=== PATIENT | female | born 1990 | race Caucasian/White ===

== ENCOUNTER 2022-02-21 08:00 | Outpatient (CLI) | payer MEDICAID, OTHER ==
[2022-02-21 16:09] LABS: BILIRUBIN,URINE NEGATIVE (NEGATIVE); GLUCOSE, URINE (UA) NEGATIVE (NEGATIVE); KETONES,URINE (UA) NEGATIVE (NEGATIVE); LEUKOCYTE ESTERASE, URINE NEGATIVE (NEGATIVE); NITRITE,URINE NEGATIVE (NEGATIVE); OCCULT BLOOD,URINE NEGATIVE (NEGATIVE); PH,URINE 7.5 PH (5.0-7.5); PROTEIN,URINE NEGATIVE (NEGATIVE); UROBILINOGEN,URINE 0.2 (NORMAL) E.U./dL (NORMAL)
[2022-02-21 16:26] LABS: CLARITY,URINE CLEAR (CLEAR)
[2022-02-21 17:14] LABS: BACTERIA,URINE Few /HPF (None Seen); RBC,URINE None Seen /HPF (0-5); SQUAMOUS EPITHELIAL CELL,UR MANY Squamous (<= Few); WBC,URINE 0-3 /HPF (0-5)
== END 2022-02-21 23:59 | disposition home or self-care (01) ==
LOC: LAB 08:00
PROVIDERS: ATTEND Obstetrics & Gynecology
DX: Z32.01 Encounter for pregnancy test, result positive (principal)
CPT/HCPCS: 81001; 87086

== ENCOUNTER 2022-03-04 13:50 | Outpatient (CLI) | payer MEDICAID ==
[2022-03-04 14:17] LABS: BASOPHILS # (AUTO) 0.1 10^3/uL (0.0-0.1); BASOPHILS % (AUTO) 0.4 %; EOSINOPHILS # (AUTO) 0.2 10^3/uL (0.0-0.7); EOSINOPHILS % (AUTO) 1.8 %; HCT - HEMATOCRIT 37.4 % (37.0-47.0); HGB - HEMOGLOBIN 12.8 g/dL (12.0-16.0); LYMPHOCYTES # (AUTO) 2.2 10^3/uL (1.5-3.5); LYMPHOCYTES % (AUTO) 16.7 %; MEAN CORPUSCULAR HEMOGLOBIN 29.4 pg (27.0-31.0); MEAN CORPUSCULAR HGB CONC 34.2 g/dL (32.0-36.0); MEAN CORPUSCULAR VOLUME 85.8 fL (81.0-99.0); MEAN PLATELET VOLUME 10.6 fL (7.9-10.8); MONOCYTES # (AUTO) 0.6 10^3/uL (0.0-1.0); MONOCYTES % (AUTO) 4.8 %; NEUTROPHILS # (AUTO) 9.9 10^3/uL (1.5-6.6); NEUTROPHILS % (AUTO) 76.1 %; PLT - PLATELET COUNT 264 10^3/uL (130-450); RED BLOOD COUNT 4.36 10^6/uL (4.20-5.40); RED CELL DISTRIBUTION WIDTH 12.8 % (12.0-15.0)
[2022-03-04 14:18] LABS: BILIRUBIN,URINE NEGATIVE (NEGATIVE); GLUCOSE, URINE (UA) NEGATIVE (NEGATIVE); KETONES,URINE (UA) NEGATIVE (NEGATIVE); LEUKOCYTE ESTERASE, URINE NEGATIVE (NEGATIVE); NITRITE,URINE NEGATIVE (NEGATIVE); OCCULT BLOOD,URINE NEGATIVE (NEGATIVE); PROTEIN,URINE NEGATIVE (NEGATIVE); UROBILINOGEN,URINE 0.2 (NORMAL) E.U./dL (NORMAL)
[2022-03-04 14:36] LABS: CLARITY,URINE CLEAR (CLEAR)
[2022-03-04 14:46] LABS: BACTERIA,URINE Few /HPF (None Seen); RBC,URINE 0-5 /HPF (0-5); SQUAMOUS EPITHELIAL CELL,UR MANY Squamous (<= Few); WBC,URINE 0-3 /HPF (0-5)
[2022-03-04 14:47] LABS: MUCUS,URINE Marked Strands
[2022-03-05 04:08] LABS: HBsAG SCREEN Negative (Negative); HCV AB <0.1 s/co ratio (0.0-0.9); HIV SCREEN 4TH GENERATION Non Reactive (Non Reactive)
[2022-03-05 07:10] LABS: VARICELLA-ZOSTER AB IGG 1570 index (Immune >165)
[2022-03-05 08:09] LABS: RPR Non Reactive (Non Reactive)
== END 2022-03-04 13:51 | disposition home or self-care (01) ==
LOC: LAB 13:50
PROVIDERS: ATTEND Obstetrics & Gynecology
DX: Z36.89 Encounter for other specified antenatal screening (principal); Z32.01 Encounter for pregnancy test, result positive
CPT/HCPCS: 36415; 81001; 85025; 86592; 86762; 86787; 86803; 86850; 86900; 86901; 87086; 87340; 87389

== ENCOUNTER 2022-03-06 17:04 | Outpatient (CLI) | payer MEDICAID ==
--- NOTE | 2022-03-07 12:12 | Ultrasound Report ---
PROCEDURE: OB First Trimester w/TV INDICATIONS: POSITIVE TEST OUTSIDE/PRIOR DATING DATA: Last menstrual period (LMP): 11/28/2021. LMP-based estimated date of delivery (ISIS): 09/04/2022. First dating scan (date and location): 03/06/2022 [facility] Gary Estimated date of delivery (ISIS) from first dating scan: 10/27/2022. The below data below was generated using the ultrasound ISIS of 10/27/2022 TECHNIQUE: Real-time scanning was performed of the fetus and maternal pelvic organs, with image documentation. Endovaginal scanning was also performed to better visualize the fetus and maternal ovaries. COMPARISON: None FINDINGS: Embryo: Intrauterine gestational sac. Mean gestational sac diameter 2.6 cm. pole measuring 0.6 cm corresponding to 6 weeks 3 days gestational age. A yolk sac is seen. Small subchorionic hemorrhag e measuring 1.6 cm. Heart rate: 107 bpm Measurement variability in dating: +/- 4 weeks by LMP, +/- 7 days by mean sac diameter (use before 6 weeks gestation if crown-rump length not able to be measured), +/- 5 days by crown-rump length (6-12 weeks gestation). Maternal organs: Ovaries are within normal limits. Right corpus luteum measuring at 2.5 cm. Simple r ight ovarian cyst measuring 2.8 cm. Trace fluid adjacent to the right adnexa. IMPRESSION: 1. Pichardo living intrauterine at 6 weeks 3 days based on today's crown-rump length. 2. Small perigestational hemorrhage. Reviewed by: Dimitrios Koch MD on 03/07/2022 12:11 PM PDT Approved by: Dimitrios Koch MD on 03/07/2022 12:11 PM PDT Station ID: [id number]
== END 2022-03-06 17:05 | disposition home or self-care (01) ==
LOC: DI 17:04
PROVIDERS: ATTEND Obstetrics & Gynecology
DX: O41.8X10 Other specified disorders of amniotic fluid and membranes, first trimester, not applicable or unspecified (principal); Z3A.01 Less than 8 weeks gestation of pregnancy

== ENCOUNTER 2022-03-14 14:45 | Outpatient (CLI) | payer MEDICAID ==
--- NOTE | 2022-03-15 14:27 | Ultrasound Report ---
PROCEDURE: OB First Trimester w/TV INDICATIONS: SUPERVISION OF OUTSIDE/PRIOR DATING DATA: Last menstrual period (LMP): 11/28/2021. LMP-based estimated date of delivery (ISIS): 09/01/2022. First dating scan (date and location): 03/06/2022. Estimated date of delivery (ISIS) from first dating scan: 10/27/2022. The below data below was generated using the ultrasound ISIS of 10/27/2021. TECHNIQUE: Real-time scanning was performed of the fetus and maternal pelvic organs, with image documentation. Endovaginal scanning was also performed to better visualize the fetus and maternal ovaries. COMPARISON: OB ultrasound, 03/06/2022. FINDINGS: There is a single living IUP with a crown-rump measuring 1.21 cm, corresponding to ultraso und ISIS 7 weeks 3 days. heart tone is present with heart rate 135 BPM. Cervix is closed. Measurement variability in dating: +/- 4 weeks by LMP, +/- 7 days by mean sac diameter (use before 6 weeks gestation if crown-rump length not able to be measured), +/- 5 days by crown-rump length (6-12 weeks gestation). Maternal organs: There is a 2.7 x 1.5 x 2.5 cm corpus luteal cyst in right ovary. In addition, there is a 2.9 x 1.4 x 2.4 cm simple appearing cyst in right ovary. Left ovary is grossly normal. IMPRESSION: 1. A single living IUP is present. There is appropriate interval growth. 2. Right ovarian cysts. Reviewed by: Martin Felton MD on 03/15/2022 2:26 PM PDT Approved by: Martin Felton MD on 03/15/2022 2:26 PM PDT Station ID: [id number]
== END 2022-03-14 14:46 | disposition home or self-care (01) ==
LOC: DI 14:45
PROVIDERS: ATTEND Obstetrics & Gynecology
DX: O34.81 Maternal care for other abnormalities of pelvic organs, first trimester (principal); N83.11 Corpus luteum cyst of right ovary; Z3A.01 Less than 8 weeks gestation of pregnancy

== ENCOUNTER 2022-05-03 14:20 | Outpatient (CLI) | payer MEDICAID | END 2022-05-03 14:21 | disposition home or self-care (01) | LOC: LAB 14:20 | PROVIDERS: ATTEND Obstetrics & Gynecology | DX: Z32.01 Encounter for pregnancy test, result positive (principal) | CPT/HCPCS: 36415; 84702 ==

== ENCOUNTER 2022-05-24 08:21 | Emergency (ER) | payer MEDICAID ==
[2022-05-24] MEDS ORDERED: SODIUM CHLORIDE 0.9% 1,000 ML IV STA (09:06)
[2022-05-24] MEDS ORDERED: METOCLOPRAMIDE 10 MG/2 ML VIAL IVP STA (09:06)
[2022-05-24] MEDS ORDERED: diphenhydrAMINE INJ 50 MG/ML VIAL IVP STA (09:06)
[2022-05-24] MEDS ORDERED: KETOROLAC 30 MG/ML VIAL IVP STA (09:06)
[2022-05-24 09:48] LABS: RAPID STREP SCREEN Negative (Negative)
--- NOTE | 2022-05-24 10:14 | ED Physician Documentation ---
PD HPI HEADACHE - Stated complaint Stated Complaint: HEADACHE - Chief complaint Chief Complaint: Neuro - History obtained from History obtained from: Patient - Additional information Additional information: Patient is a 32-year-old female presenting for evaluation of a headache that is behind both eyes and has been present for 1 week. It is throbbing in nature. She reports of the last several months she has had an increased frequency in her headaches. She used to get them once a week and then every few days but now they are coming every other day and this 1 has been lasting for 1 week. She al so reports having URI symptoms for the past 2 to 3 days with sore throat, nasal congestion. She has been using Excedrin without any improvement. She did have nausea earlier on but that has improved.She denies fever, head trauma, chest pain, difficulty breathing. She denies concerns for .She has not recently seen a neurologist as Her divorce was recently finalized and she lost her insurance. She does not currently have a PCP. Review of Systems Constitutional: denies: Fever Nose: reports: Congestion Throat: reports: Sore throat Cardiac: denies: Chest pain / pressure Respiratory: denies: Dyspnea GI: reports: Nausea. denies: Abdominal Pain, Vomiting : denies: Dysuria Musculoskeletal: denies: Back pain Neurologic: reports: Headache PD PAST MEDICAL HISTORY - Past Medical History Past Medical History: Yes - Past Surgical History Past Surgical History: No - Present Medications Home Medications: Ambulatory Orders Medication Instructions Recorded Confirmed Ondansetron Odt [Zofran] 4 mg TL Q6H PRN #10 tablet 09/02/13 Butalb/Acetam/Caff 50/325/40 1 each PO Q6HR PRN #12 tablet 05/24/22 [Fioricet] - Allergies Allergies/Adverse Reactions: Allergies Allergy/AdvReac Type Severity Reaction Status Date / Time No Known Drug Allergies Allergy Verified 05/24/22 08:46 - Social History Does the pt smoke?: No Smoking Status: Never smoker Does the pt drink ETOH?: No Does the pt have substance abuse?: No - Immunizations Immunizations are current?: Yes PD ED PE NORMAL - General General: Alert and oriented X 3, No acute distress, Well developed/nourished - HEENT HEENT: Atraumatic, PERRL, EOMI, Moist mucous membranes, Pharynx benign - Neck Neck: Supple, no meningeal sign - Cardiac Cardiac: RRR, No murmur - Respiratory Respiratory: No respiratory distress, Clear bilaterally - Abdomen Abdomen: Soft, Non tender - Derm Derm: Warm and dry - Extremities Extremities: No edema - Neuro Neuro: Alert and oriented X 3, manager advertising 2-12 intact, No motor deficit, No sensory deficit, Normal speech Results - Vitals Vitals: Vital Signs - 24 hr 05/24/22 05/24/22 08:44 10:26 Temperature 36.6 C Heart Rate 99 66 Respiratory 20 16 Rate Blood Pressure 115/67 112/78 O2 Saturation 99 100 Oxygen O2 Source Room air - Labs Labs: Laboratory Tests 05/24/22 05/24/22 09:25 09:25 Nasal Adenovirus (PCR) NOT DETECTED Nasal B. parapertussis DNA (PCR) NOT DETECTED Nasal Coronavir 229E PCR NOT DETECTED Nasal Coronavir HKU1 PCR NOT DETECTED Nasal Coronavir NL63 PCR NOT DETECTED Nasal Coronavir OC43 PCR NOT DETECTED Nasal Enterovir/Rhinovir PCR NOT DETECTED Nasal Influenza B PCR NOT DETECTED Nasal Influenza A PCR NOT DETECTED Nasal Parainfluen 1 PCR NOT DETECTED Nasal Parainfluen 2 PCR NOT DETECTED Nasal Parainfluen 3 PCR NOT DETECTED Nasal Parainfluen 4 PCR NOT DETECTED Nasal RSV (PCR) NOT DETECTED Nasal B.pertussis DNA PCR NOT DETECTED Nasal C.pneumoniae (PCR) NOT DETECTED Jose Human Metapneumo PCR NOT DETECTED Nasal M.pneumoniae (PCR) NOT DETECTED Nasal SARS-CoV-2 (PCR) NOT DETECTED Group A Strep Rapid Negative PD MEDICAL DECISION MAKING - ED course Complexity details: reviewed results, re-evaluated patient, d/w patient ED course: Patient presenting for evaluation of migraine that has been present for 1 week. She does have a history of migraines but they have been increasing in frequency recently. She denies that this is different than prior episodes other than lasting longer. She has no red flag signs or symptoms in regards to her headache and is well-appearing. She has a normal neuro exam without signs of meningitis.She does report having recent URI symptoms including a sore throat. She has no signs of oral abscess or deep space infection. Her strep test is negative. She is feeling better with migraine cocktail. Given that she reports having an increased frequency of migraine headaches recently will Rx Fioricet as Excedrin has not been helping her. She was also given information for a PCP. She is ambulatory at discharge and advised on concerning symptoms to return for. Departure - Departure Disposition: 01 Home, Self Care Clinical Impression: Headache, Viral upper respiratory illness Condition: Stable Instructions: ED Headache Tension, ED Viral Syndrome Follow-Up: Shayla Salvador ARNP [Credentialed Staff Provider] - Prescriptions: Butalb/Acetam/Caff 50/325/40 [Fioricet] 1 each PO Q6HR PRN #12 tablet PRN Reason: Headache Comments: Your strep test is negative. Your respiratory panel is pending. This will check for COVID, influenza, RSV and a number of other common cold viruses. We will notify you if it is positive for COVID. Otherwise you can check the patient portal for your results. Please continue with acetaminophen or ibuprofen as needed for fevers and body aches, plenty of fluids/hydration and rest. Return to the ER with any worsening symptoms such as difficulty breathing or vomiting. You were also evaluated for More frequent headaches. I sent a prescription for a headache medication called Keren to [facility] in [place]. I have also listed the name of a PCP that you should call to try and establish care with as you should have Either a PCP or neurologist to help you manage your frequent headaches. If you have any worsening symptoms please return to the ER. Discharge Date/Time: 05/24/22 10:38
[2022-05-24 10:27] VITALS: BP 112/78
[2022-05-24 10:36] LABS: CORONAVIRUS 229E-RESP PCR NOT DETECTED; CORONAVIRUS HKU1-RESP PCR NOT DETECTED; CORONAVIRUS NL63-RESP PCR NOT DETECTED; CORONAVIRUS OC43-RESP PCR NOT DETECTED; HUMAN METAPNEUMOVIRUS NOT DETECTED; SARS-CoV-2 -RESP PCR PANEL NOT DETECTED
[2022-05-24 10:37] LABS: B. PARAPERTUSSIS- RESP PCR PAN NOT DETECTED; B. PERTUSSIS- RESP PCR PANEL NOT DETECTED; C. PNEUMONIAE- RESP PCR PANEL NOT DETECTED; INFLUENZA A- RESP PCR PANEL NOT DETECTED; INFLUENZA B - RESP PCR PANEL NOT DETECTED; M. PNEUMONIAE- RESP PCR PANEL NOT DETECTED; PARAINFLUENZA VIRUS 1 NOT DETECTED; PARAINFLUENZA VIRUS 2 NOT DETECTED; PARAINFLUENZA VIRUS 3 NOT DETECTED; PARAINFLUENZA VIRUS 4 NOT DETECTED; RHINOVIRUS/ENTEROVIRUS NOT DETECTED; RSV- RESP PCR PANEL NOT DETECTED
== END 2022-05-24 10:38 | disposition home or self-care (01) ==
LOC: ED 08:21
DX: R51.9 Headache, unspecified (principal); J06.9 Acute upper respiratory infection, unspecified; Z20.822 Contact with and (suspected) exposure to COVID-19
CPT/HCPCS: 87070; 87430; 87633; 96374; 99283; 99284; J1200; J2765

== ENCOUNTER 2022-10-04 15:01 | Outpatient (CLI) | payer MEDICAID | END 2022-10-04 15:02 | disposition home or self-care (01) | LOC: LAB 15:01 | PROVIDERS: ATTEND Nurse Practitioner | DX: Z32.01 Encounter for pregnancy test, result positive (principal) | CPT/HCPCS: 36415; 84702 ==

== ENCOUNTER 2022-10-07 08:45 | Outpatient (CLI) | payer MEDICAID | END 2022-10-07 08:46 | disposition home or self-care (01) | LOC: LAB 08:45 | PROVIDERS: ATTEND Nurse Practitioner | DX: O20.9 Hemorrhage in early pregnancy, unspecified (principal) | CPT/HCPCS: 36415; 84702 ==

== ENCOUNTER 2022-10-21 14:35 | Outpatient (CLI) | payer MEDICAID ==
[2022-10-21 20:56] LABS: ESTIMATED AVERAGE GLUCOSE 97 mg/dL (70-100)
[2022-10-22 21:07] LABS: THYROGLOBULIN ANTIBODY <1.0 IU/mL (0.0-0.9); THYROID PEROXIDASE (TPO) AB <9 IU/mL (0-34)
[2022-10-23 13:11] LABS: BETA-2 GLYCOPROTEIN I IGG <9 (0-20); BETA-2 GLYCOPROTEIN I IGM <9 (0-32)
[2022-10-24 00:08] LABS: CARDIOLIPIN IGG <9 GPL U/mL (0-14); CARDIOLIPIN IGM 9 MPL U/mL (0-12)
== END 2022-10-21 14:36 | disposition home or self-care (01) ==
LOC: LAB 14:35
PROVIDERS: ATTEND Obstetrics & Gynecology
DX: N96 Recurrent pregnancy loss (principal)
CPT/HCPCS: 36415; 83036; 84443; 85598; 85613; 85732; 86146; 86147; 86376; 86800

== ENCOUNTER 2022-12-02 14:13 | Outpatient (CLI) | payer MEDICAID | END 2022-12-02 14:14 | disposition home or self-care (01) | LOC: LAB 14:13 | PROVIDERS: ATTEND Obstetrics & Gynecology | DX: Z32.01 Encounter for pregnancy test, result positive (principal) | CPT/HCPCS: 36415; 84702 ==

== ENCOUNTER 2022-12-06 12:33 | Outpatient (CLI) | payer MEDICAID | END 2022-12-06 12:34 | disposition home or self-care (01) | LOC: LAB 12:33 | PROVIDERS: ATTEND Obstetrics & Gynecology | DX: Z32.01 Encounter for pregnancy test, result positive (principal) | CPT/HCPCS: 36415; 84702 ==

== ENCOUNTER 2022-12-11 08:00 | Outpatient (CLI) | payer MEDICAID ==
[2022-12-11 15:54] LABS: BILIRUBIN,URINE NEGATIVE (NEGATIVE); GLUCOSE, URINE (UA) NEGATIVE (NEGATIVE); KETONES,URINE (UA) NEGATIVE (NEGATIVE); LEUKOCYTE ESTERASE, URINE NEGATIVE (NEGATIVE); NITRITE,URINE NEGATIVE (NEGATIVE); OCCULT BLOOD,URINE NEGATIVE (NEGATIVE); PH,URINE 5.5 PH (5.0-7.5); PROTEIN,URINE NEGATIVE (NEGATIVE); UROBILINOGEN,URINE 0.2 (NORMAL) E.U./dL (NORMAL)
[2022-12-11 15:55] LABS: CLARITY,URINE CLOUDY (CLEAR)
[2022-12-11 16:03] LABS: AMORPHOUS SEDIMENT,UR Marked /LPF; BACTERIA,URINE Rare /HPF (None Seen); RBC,URINE 0-5 /HPF (0-5); SQUAMOUS EPITHELIAL CELL,UR FEW Squamous (<= Few); WBC,URINE 0-3 /HPF (0-5)
[2022-12-11 16:04] LABS: MUCUS,URINE Few Strands
== END 2022-12-11 23:59 | disposition home or self-care (01) ==
LOC: LAB.WC 08:00
PROVIDERS: ATTEND Obstetrics & Gynecology
DX: Z34.90 Encounter for supervision of normal pregnancy, unspecified, unspecified trimester (principal)
CPT/HCPCS: 81001; 87086

== ENCOUNTER 2022-12-16 16:34 | Outpatient (CLI) | payer MEDICAID ==
--- NOTE | 2022-12-17 10:55 | Ultrasound Report ---
PROCEDURE: OB First Trimester w/TV INDICATIONS: POSITIVE PREGNANY TEST OUTSIDE/PRIOR DATING DATA: Last menstrual period (LMP): Not available. LMP-based estimated date of delivery (ISIS): Not available. First dating scan (date and location): 12/16/2022 at [facility]. Estimated date of delivery (ISIS) from first dating scan: 08/09/2023. TECHNIQUE: Real-time scanning was performed of the fetus and maternal pelvic organs, with image documentation. Endovaginal scanning was declined by patient. COMPARISON: None. FINDINGS: Intrauterine gestational sac present. Embryo: Measuring 0.55 cm corresponding to gestational age 6 weeks 2 days. Heart rate: heart tone present with heart rate 113 bpm. Other: No perigestational fluid collection. Measurement variability in dating: +/- 4 weeks by LMP, +/- 7 days by mean sac diameter (use before 6 weeks gestation if crown-rump length not able to be measured), +/- 5 days by crown-rump length (6-12 weeks gestation). Maternal organs: Ovaries appear within normal limits. Note is made of a corpus luteal cyst in left o vary measuring 0.83 cm. IMPRESSION: 1. A single living IUP with the estimated gestational age 6 weeks 2 days, corresponding to ultrasound ISIS 08/09/2023. 2. A corpus luteal cyst in the left ovary. Reviewed by: Martin Felton MD on 12/17/2022 10:54 AM PDT Approved by: Martin Felton MD on 12/17/2022 10:54 AM PDT Station ID: [id number]
== END 2022-12-16 16:35 | disposition home or self-care (01) ==
LOC: DI 16:34
PROVIDERS: ATTEND Obstetrics & Gynecology
DX: O34.81 Maternal care for other abnormalities of pelvic organs, first trimester (principal); N83.12 Corpus luteum cyst of left ovary; Z3A.01 Less than 8 weeks gestation of pregnancy

== ENCOUNTER 2022-12-25 13:59 | Outpatient (CLI) | payer MEDICAID ==
[2022-12-25 14:14] LABS: BASOPHILS % (AUTO) 0.3 %; EOSINOPHILS # (AUTO) 0.2 10^3/uL (0.0-0.7); EOSINOPHILS % (AUTO) 1.7 %; HCT - HEMATOCRIT 36.3 % (37.0-47.0); HGB - HEMOGLOBIN 12.2 g/dL (12.0-16.0); MEAN CORPUSCULAR HEMOGLOBIN 28.6 pg (27.0-31.0); MEAN CORPUSCULAR HGB CONC 33.6 g/dL (32.0-36.0); MEAN CORPUSCULAR VOLUME 85.2 fL (81.0-99.0); MEAN PLATELET VOLUME 10.1 fL (7.9-10.8); MONOCYTES # (AUTO) 0.8 10^3/uL (0.0-1.0); MONOCYTES % (AUTO) 7.7 %; NEUTROPHILS # (AUTO) 7.8 10^3/uL (1.5-6.6); NEUTROPHILS % (AUTO) 71.9 %; PLT - PLATELET COUNT 239 10^3/uL (130-450); RED BLOOD COUNT 4.26 10^6/uL (4.20-5.40); RED CELL DISTRIBUTION WIDTH 12.8 % (12.0-15.0); WHITE BLOOD COUNT 10.9 x10^3/uL (4.8-10.8)
[2022-12-26 05:12] LABS: HBsAG SCREEN Negative (Negative); HCV AB Non Reactive (Non Reactive); HIV SCREEN 4TH GENERATION Non Reactive (Non Reactive); RPR Non Reactive (Non Reactive)
[2022-12-26 08:10] LABS: VARICELLA-ZOSTER AB IGG 1638 index (Immune >165)
== END 2022-12-25 14:00 | disposition home or self-care (01) ==
LOC: LAB 13:59
PROVIDERS: ATTEND Obstetrics & Gynecology
DX: Z34.90 Encounter for supervision of normal pregnancy, unspecified, unspecified trimester (principal)
CPT/HCPCS: 36415; 85025; 86592; 86762; 86787; 86803; 86850; 86900; 86901; 87340; 87389; 87491; 87591; 87661

== ENCOUNTER 2022-12-26 08:00 | Outpatient (CLI) | payer MEDICAID ==
[2022-12-26 20:25] LABS: CHLAMYDIA TRACHOMATIS DNA NEGATIVE (NEGATIVE); NEISSERIA GONORRHOEAE DNA NEGATIVE (NEGATIVE); TRICHOMONAS VAGINALIS DNA NEGATIVE (NEGATIVE)
== END 2022-12-26 23:59 | disposition home or self-care (01) ==
LOC: LAB.WC 08:00
PROVIDERS: ATTEND Obstetrics & Gynecology
DX: Z11.3 Encounter for screening for infections with a predominantly sexual mode of transmission (principal)
CPT/HCPCS: 87491; 87591; 87661

== ENCOUNTER 2023-01-14 09:36 | Outpatient (CLI) | payer MEDICAID | END 2023-01-14 09:37 | disposition home or self-care (01) | LOC: LAB 09:36 | PROVIDERS: ATTEND Obstetrics & Gynecology | DX: Z53.9 Procedure and treatment not carried out, unspecified reason (principal) ==

== ENCOUNTER 2023-02-27 08:56 | Outpatient (CLI) | payer MEDICAID ==
[2023-03-03 15:08] LABS: AFP VALUE 29.7 ng/mL (.); GESTAT. AGE METHOD As provided (.); INSULIN DEP DIABETES No (.); RACE Caucasian (.); WEIGHT 164 lbs (.)
[2023-03-04 10:09] LABS: GEST. AGE ON COLLECTION DATE 15.3 weeks (.); MATERNAL AGE AT EDD 33.3 yr (.); MULTIPLE GESTATION No (.); OPEN SPINA BIFIDA RISK 1 IN 10000 (.); TEST RESULTS *Screen Negative* (.)
== END 2023-02-27 08:57 | disposition home or self-care (01) ==
LOC: LAB 08:56
PROVIDERS: ATTEND Obstetrics & Gynecology
DX: O09.91 Supervision of high risk pregnancy, unspecified, first trimester (principal); O26.21 Pregnancy care for patient with recurrent pregnancy loss, first trimester
CPT/HCPCS: 36415; 82105; 82950

== ENCOUNTER 2023-03-20 09:46 | Outpatient (CLI) | payer MEDICAID ==
--- NOTE | 2023-03-20 14:40 | Ultrasound Report ---
PROCEDURE: OB Detailed Eval INDICATIONS: SUPERVISION OF HIGH RISK OUTSIDE/PRIOR DATING DATA: Last menstrual period (LMP): Unsure. LMP-based estimated date of delivery (ISIS): Unknown. First dating scan (date and location): 12/16/2022. Estimated date of delivery (ISIS) from first dating scan: 08/09/2023. The below data below was generated using the working ISIS of 08/09/2023 TECHNIQUE: Real-time scanning was performed of the fetus, with image documentation and biometric measurements. Endovaginal scanning: Not indicated COMPARISON: 12/16/2022 FINDINGS: General: A single living intrauterine gestation is present. Presentation: Vertex Placenta: Placental position is anterior, without previa. Amniotic fluid index: 12.6 cm, within normal limits for gestational age. heart rate: 143 beats per minute. Maternal cervical canal: 4.6 cm long; normal length is 2.5 cm or more. biometrics: Biparietal diameter: 4.7 cm, 20 weeks, 1 day. Head circumference: 17.6 cm, 20 weeks, 1 day. Abdominal circumference: 14.7 cm, 20 weeks, 0 day. Femur length: 3.0 cm, 19 weeks, 2 days. Estimated gestational age from initial scan: 19 weeks, 5 days. Composite gestational age from present scan: 19 weeks, 6 days. Estimated weight and percentile: 307 g, 44%. Measurement variability in biometric dating: +/- 10 days from 12-20 weeks gestation, +/- 2 weeks from 20-30 weeks gestation, +/- 3 weeks at 30 weeks gestation or later. Anatomic survey: Neuro: Ventricles are normal at less than 10 mm. Cisterna magna is normal at 3-11 mm. Cerebellum i s normal in size and morphology. Nuchal skin fold: Normal at less than 6 mm between 14 and 20 weeks gestational age. Face: Nose and lips, facial profile are normal. Spine: No evidence for spina bifida. Heart: 4-chambered heart is present, with normal ventricular outflow tracts. Diaphragm: Diaphragm is intact. Stomach: Left-sided stomach is present. Kidneys: No hydronephrosis. Normal is less than 5 mm in 2nd trimester, less than 7 mm in 3rd trimester. Cord: 3 vessel cord has orthotopic insertion. Bladder: Normal in size. Extremities: All 4 extremities are visualized. IMPRESSION: 1. Single live intrauterine gestation with fetus in vertex presentation. heart rate is 143 bpm. Normal amount of amniotic fluid. MICHAEL measures 12.6 cm. Normal growth. Estimated weight i s at 44%. 2. Normal anatomic survey. Reviewed by: Toribio Talbert MD on 03/20/2023 2:39 PM PDT Approved by: Toribio Talbert MD on 03/20/2023 2:39 PM PDT Station ID: [id number]
== END 2023-03-20 09:47 | disposition home or self-care (01) ==
LOC: DI 09:46
PROVIDERS: ATTEND Obstetrics & Gynecology
DX: O09.92 Supervision of high risk pregnancy, unspecified, second trimester (principal); O26.22 Pregnancy care for patient with recurrent pregnancy loss, second trimester; Z86.32 Personal history of gestational diabetes; Z3A.19 19 weeks gestation of pregnancy

== ENCOUNTER 2023-04-14 08:00 | Outpatient (CLI) | payer MEDICAID ==
[2023-04-14 19:22] LABS: BILIRUBIN,URINE NEGATIVE (NEGATIVE); GLUCOSE, URINE (UA) NEGATIVE (NEGATIVE); KETONES,URINE (UA) NEGATIVE (NEGATIVE); LEUKOCYTE ESTERASE, URINE NEGATIVE (NEGATIVE); NITRITE,URINE NEGATIVE (NEGATIVE); OCCULT BLOOD,URINE NEGATIVE (NEGATIVE); PROTEIN,URINE NEGATIVE (NEGATIVE); UROBILINOGEN,URINE 0.2 (NORMAL) E.U./dL (NORMAL)
[2023-04-14 19:27] LABS: CLARITY,URINE CLEAR (CLEAR)
[2023-04-14 19:31] LABS: CREATININE,URINE 109.9 mg/dL; PROTEIN/CREATININE RATIO,URINE 0.1 (<=0.2)
[2023-04-14 19:43] LABS: BACTERIA,URINE Few /HPF (None Seen); RBC,URINE 0-5 /HPF (0-5); SQUAMOUS EPITHELIAL CELL,UR MOD Squamous (<= Few)
== END 2023-04-14 23:59 | disposition home or self-care (01) ==
LOC: LAB.WC 08:00
PROVIDERS: ATTEND Nurse Practitioner
DX: M79.89 Other specified soft tissue disorders (principal)
CPT/HCPCS: 81001; 82570; 84156; 87086

== ENCOUNTER 2023-05-21 08:57 | Outpatient (CLI) | payer MEDICAID ==
[2023-05-21 10:09] LABS: HCT - HEMATOCRIT 31.3 % (37.0-47.0); HGB - HEMOGLOBIN 10.2 g/dL (12.0-16.0); MEAN CORPUSCULAR HEMOGLOBIN 28.6 pg (27.0-31.0); MEAN CORPUSCULAR HGB CONC 32.6 g/dL (32.0-36.0); MEAN CORPUSCULAR VOLUME 87.7 fL (81.0-99.0); MEAN PLATELET VOLUME 10.7 fL (7.9-10.8); RED BLOOD COUNT 3.57 10^6/uL (4.20-5.40); WHITE BLOOD COUNT 9.6 x10^3/uL (4.8-10.8)
== END 2023-05-21 08:58 | disposition home or self-care (01) ==
LOC: LAB 08:57
PROVIDERS: ATTEND Nurse Practitioner
DX: O09.92 Supervision of high risk pregnancy, unspecified, second trimester (principal); Z36.89 Encounter for other specified antenatal screening
CPT/HCPCS: 36415; 82950; 85027

== ENCOUNTER 2023-07-11 10:53 | Outpatient (CLI) | payer MEDICAID ==
[2023-07-11 11:18] VITALS: BP 112/64
--- NOTE | 2023-07-11 16:19 | PROCEDURE REPORT ---
- HPI Diagnosis/Indication for NST: Gestational Diabetes Current EDU 08/09/23 Gestation 35 Weeks and 6 Days 7 Para 2 Vital Signs Temperature 97.9 F 07/11/23 11:06 Heart Rate 104 H 07/11/23 11:06 Respiratory Rate 16 07/11/23 11:06 Blood Pressure 112/64 07/11/23 11:06 Temperature 97.9 F 07/11/23 11:06 Heart Rate 104 H 07/11/23 11:06 Respiratory Rate 16 07/11/23 11:06 Blood Pressure 112/64 07/11/23 11:06 O2 Saturation If not protocol: Oxygen Flow, liters/minute - NST Procedure NST Procedure Start Date 07/11/23 Start Time 11:02 Stop Time 11:39 Vibroacoustic Stimulation Used No Patient States Movement Yes - Results and Plan Findings/Impression: 135 mod karo + A cells no D cells reactive Plan: 33yo @ 35w6d with reactive NST done for GDM. OK to D/C home with precautions and continued follow up.
== END 2023-07-11 11:40 | disposition home or self-care (01) ==
LOC: WFO 10:53 → FBP 10:56 → WFO 11:40
PROVIDERS: ATTEND Obstetrics & Gynecology
DX: O09.893 Supervision of other high risk pregnancies, third trimester (principal); O24.414 Gestational diabetes mellitus in pregnancy, insulin controlled; Z3A.35 35 weeks gestation of pregnancy
CPT/HCPCS: 59025

== ENCOUNTER 2023-07-14 08:00 | Outpatient (CLI) | payer MEDICAID | END 2023-07-14 23:59 | disposition home or self-care (01) | LOC: LAB.WC 08:00 | PROVIDERS: ATTEND Obstetrics & Gynecology | DX: Z36.85 Encounter for antenatal screening for Streptococcus B (principal) | CPT/HCPCS: 87081; 87797 ==

== ENCOUNTER 2023-07-15 10:19 | Outpatient (CLI) | payer MEDICAID ==
--- NOTE | 2023-07-15 11:24 | Ultrasound Report ---
PROCEDURE: OB Follow up INDICATIONS: SUPERVISION OF OUTSIDE/PRIOR DATING DATA: Last menstrual period (LMP): Unsure. LMP-based estimated date of delivery (ISIS): Unknown. First dating scan (date and location): 12/16/2022. Estimated date of delivery (ISIS) from first dating scan: 08/09/2023. The below data below was generated using the working ISIS of 08/09/2023 TECHNIQUE: Real-time scanning was performed of the fetus, with image documentation and biometric measurements. Endovaginal scanning: Not performed. COMPARISON: 12/16/2022, 03/20/2023 FINDINGS: General: A single living intrauterine gestation is present. Presentation: Vertex Placenta: Placental position is anterior, without previa. Amniotic fluid index: 3.0 cm, less than 0.5% for gestational age. heart rate: 138 beats per minute. Maternal cervical canal : Closed. biometrics: Biparietal diameter: 8.7 cm, 35 weeks, 2 days, 27% Head circumference: 31.3 cm, 35 weeks, 1 day, 46%. Abdominal circumference: 33.8 cm, 37 weeks, 5 days, 90%. Femur length: 6.5 cm, 33 weeks, 5 days, 2.3% Estimated gestational age from initial scan: 36 weeks, 3 days. Composite gestational age from present scan: 35 weeks, 3 days Estimated weight and percentile: 2881 g, 47.4% Measurement variability in biometric dating: +/- 10 days from 12-20 weeks gestation, +/- 2 weeks from 20-30 weeks gestation, +/- 3 weeks at 30 weeks gestation or more. Other: chest, stomach, bilateral kidneys and urinary bladder are visualized and are within norm al limits. IMPRESSION: 1. Single live intrauterine gestation with fetus in vertex presentation. heart rate is 138 bpm. Normal growth with estimated weight at 47.4%. 2. Oligohydramnios with MICHAEL equals 3 cm. Reviewed by: Toribio Talbert MD on 07/15/2023 11:23 AM PST Approved by: Toribio Talbert MD on 07/15/2023 11:23 AM PST Station ID: [id number]
== END 2023-07-15 10:20 | disposition home or self-care (01) ==
LOC: DI 10:19
PROVIDERS: ATTEND Obstetrics & Gynecology
DX: O09.893 Supervision of other high risk pregnancies, third trimester (principal); O99.810 Abnormal glucose complicating pregnancy; O41.03X0 Oligohydramnios, third trimester, not applicable or unspecified; Z3A.35 35 weeks gestation of pregnancy

== ENCOUNTER 2023-07-15 11:08 | Inpatient (IN) | payer MEDICAID ==
[2023-07-15] MEDS ORDERED: LACTATED RINGERS 1,000 ML IV ONE (11:16)
[2023-07-15] MEDS: LACTATED RINGERS 1,000 ML IV SCH ×2 (13:12→20:53)
[2023-07-15 14:01] LABS: RUPTURE OF MEMBRANES PLUS NEGATIVE (NEGATIVE)
--- NOTE | 2023-07-15 14:14 | HISTORY & PHYSICAL EXAMINATION ---
Admit History - : 7 Parity: 2 : 4 Risk/History: positive: Oligohydramnios Smoking Status: Never smoker - Mother's Labs GBS: positive: Other Rubella Status: positive: Immune - Other Maternal History Other Maternal History: Pending - HPI Current EDU 08/09/23 Gestation 36 Weeks and 3 Days 7 Para 2 Vital Signs Temperature 98.4 F 07/15/23 11:16 Heart Rate 101 H 07/15/23 11:16 Respiratory Rate 16 07/15/23 11:16 Blood Pressure 126/80 07/15/23 11:16 Temperature 98.4 F 07/15/23 13:16 Heart Rate 107 H 07/15/23 13:16 Respiratory Rate 16 07/15/23 13:16 Blood Pressure 126/80 07/15/23 13:16 O2 Saturation If not protocol: Oxygen Flow, liters/minute - NST Procedure NST Procedure Start Date 07/15/23 Start Time 11:20 Stop Time 11:58 Vibroacoustic Stimulation Used No Patient States Movement Yes Meds/Allgy - Home Medications Home Medications: Ambulatory Orders Medication Instructions Recorded Confirmed Ondansetron Odt [Zofran] 4 mg TL Q6H PRN #10 tablet 09/02/13 Butalb/Acetam/Caff 50/325/40 1 each PO Q6HR PRN #12 tablet 05/24/22 [Fioricet] - Allergies Allergies/Adverse Reactions: Allergies Allergy/AdvReac Type Severity Reaction Status Date / Time hops Allergy Anaphylaxis Verified 07/15/23 14:04 procaine [From Novocain] Allergy Anaphylaxis Verified 07/15/23 14:06 Physical - Abdominal Exam Vital Signs: Temp Pulse Resp BP Pulse Ox O2 Flow Rate 98.4 F 107 H 16 126/80 07/15/23 13:16 07/15/23 13:16 07/15/23 13:16 07/15/23 13:16 Plan for Labor - Plan For Labor I expect patient to be DC'd or transferred within 96 hours.: Yes
[2023-07-15] MEDS: metFORMIN 500 MG TABLET PO SCH (23:19)
[2023-07-16] MEDS: LACTATED RINGERS 1,000 ML IV SCH ×2 (04:49→12:45)
[2023-07-16] MEDS: ACETAMINOPHEN 500 MG TABLET PO PRN (08:31)
--- NOTE | 2023-07-16 09:53 | Ultrasound Report ---
PROCEDURE: OB Limited INDICATIONS: oligohydramnios OUTSIDE/PRIOR DATING DATA: Last menstrual period (LMP): Unknown. LMP-based estimated date of delivery (ISIS): Unknown. First dating scan (date and location): 12/16/2022. Estimated date of delivery (ISIS) from first dating scan: 08/09/2023. The below data below was generated using the ultrasound ISIS of 08/09/2023 TECHNIQUE: Real-time scanning was performed of the fetus, with image documentation. COMPARISON: OB ultrasound 07/15/2023 FINDINGS: A single living intrauterine gestation is present. Presentation: Vertex Placenta: Placental position is anterior, without previa. Amniotic fluid index: 1.9 cm, less than 0.5 percentile for gestational age. Largest pocket 1.9 cm, c ompared to 1.3 cm on prior exam. It is noted no visualized fluid is present within 3 of the 4 quadran ts. Compared to prior exam, quadrant fluid measured 1.3, 0.7, 0 and 1.0 cm. heart rate: 127 beats per minutes. Maternal cervical canal: Closed Estimated gestational age from initial scan: 36 weeks 4 days. IMPRESSION: Single live intrauterine with gestational age of 36 weeks 4 days. Markedly no hydramnios with no definitively visualized fluid in quadrant 2 through 4. Quadrant one me asures 1.9 cm. The above findings were called to Dr. Malloy at time of exam on 07/16/2023 at 10:50 AM.. Reviewed by: Tania Hammond MD on 07/16/2023 9:51 AM PST Approved by: Tania Hammond MD on 07/16/2023 9:51 AM PST Station ID: [id number]
--- NOTE | 2023-07-16 13:17 | PROVIDER PROGRESS NOTE ---
Subjective - Prog Note Date Prog Note Date: 07/16/23 Prog Note Time: 13:15 - Subjective Pt reports feeling: No change Subjective: pt doing well, was admitted overnight for IV hydration and re-eval of oligohydramnios oligohydramnios persists, so we will move to IOL discussed with pt informed consent obtained and all answerable questions answered. Objective - Vital Signs/Intake & Output Reviewed Vital Signs: Yes Intake & Output: Intake & Output 07/13/23 07/14/23 07/15/23 07/16/23 23:59 23:59 23:59 23:59 Intake Total 2124.020 5016.334 Output Total 915 1350 Balance 1045.417 633.334 - Objective Comments/Other: VSS NAD Conjunctiva pink, pale sclera +S1, S2, CTAB, no increased work of breathing Abd soft, NT, ND, visibly gravid at term Samm: cephalic 6#14oz EFM: 140mod karo + A cells no D cells, reactive [place]: acontractile Cx: //hi/post/firm Ext: neg CCE - Lab Results Other Labs: Lab Results x24hrs 07/15/23 07/15/23 Range/Units 17:05 13:10 Membranes Rupture NEGATIVE (NEGATIVE) Group B Strep (PCR) NEGATIVE (NEGATIVE) Assessment/Plan - Problem List (1) Oligohydramnios Impression: for IOL RBA discussed begin IOL with miso oligo dx on growth U/S at 36w for GDMA2 repeated 24h later - persists. (2) 36 to 37 weeks gestation of Impression: discussed risks of late delivery and yet the recommendation to deliver 2'2 oligohydramnios to prevent obstetric catastrophe. pt verbalized understanding ammenable to delivery (3) GDM, class A2 Impression: on metformin Q4h BS until active labor then Q1h
[2023-07-16] MEDS ORDERED: fentaNYL 100 MCG/2 ML VIAL IVP PRN (13:21)
[2023-07-16] MEDS ORDERED: SODIUM CHLORIDE FLUSH 0.9% 10 ML SYRINGE IVP PRN ×2 (13:21)
[2023-07-16] MEDS ORDERED: lidocaine 1% 20 ML MDV ID PRN (13:21)
[2023-07-16] MEDS ORDERED: OXYTOCIN 10 UNIT/ML VIAL IM PRN (13:21)
[2023-07-16] MEDS ORDERED: LABETALOL 20 MG/4 ML SYRINGE IVP PRN ×3 (13:21)
[2023-07-16] MEDS ORDERED: TERBUTALINE 1 MG/ML VIAL SUBQ PRN (13:21)
[2023-07-16] MEDS ORDERED: miSOPROStoL 200 MCG TABLET BC PRN (13:21)
[2023-07-16] MEDS ORDERED: METHYLERGONOVINE 0.2 MG/ML VIAL IM PRN (13:21)
[2023-07-16] MEDS ORDERED: NIFEdipine 10 MG CAPSULE PO PRN (13:21)
[2023-07-16] MEDS ORDERED: TRANEXAMIC ACID IN NACL 1,000 MG/100 ML BAG IV PRN (13:21)
[2023-07-16] MEDS ORDERED: miSOPROStoL 200 MCG TABLET PR PRN (13:21)
[2023-07-16] MEDS ORDERED: OXYTOCIN/SODIUM CHLORIDE 500 ML IV PRN (13:21)
[2023-07-16] MEDS ORDERED: hydrALAZINE INJ 20 MG/ML VIAL IVP PRN ×2 (13:21)
[2023-07-16] MEDS ORDERED: CARBOPROST TROMETHAMINE 250 MCG/ML AMP IM PRN (13:21)
[2023-07-16] MEDS: miSOPROStoL 100 MCG TABLET VG SCH ×3 (13:39→23:35)
[2023-07-16] MEDS ORDERED: OXYTOCIN/SODIUM CHLORIDE 500 ML IV SCH (14:00)
[2023-07-16] MEDS: SODIUM CHLORIDE FLUSH 0.9% 10 ML SYRINGE IVP SCH (14:25)
[2023-07-16 14:27] LABS: BASOPHILS % (AUTO) 0.4 %; EOSINOPHILS # (AUTO) 0.1 10^3/uL (0.0-0.7); EOSINOPHILS % (AUTO) 1.1 %; HCT - HEMATOCRIT 34.2 % (37.0-47.0); HGB - HEMOGLOBIN 11.1 g/dL (12.0-16.0); LYMPHOCYTES % (AUTO) 24.6 %; MEAN CORPUSCULAR HEMOGLOBIN 28.6 pg (27.0-31.0); MEAN CORPUSCULAR HGB CONC 32.5 g/dL (32.0-36.0); MEAN CORPUSCULAR VOLUME 88.1 fL (81.0-99.0); MEAN PLATELET VOLUME 11.2 fL (7.9-10.8); MONOCYTES # (AUTO) 0.7 10^3/uL (0.0-1.0); MONOCYTES % (AUTO) 8.8 %; NEUTROPHILS # (AUTO) 5.3 10^3/uL (1.5-6.6); NEUTROPHILS % (AUTO) 64.5 %; PLT - PLATELET COUNT 174 10^3/uL (130-450); RED BLOOD COUNT 3.88 10^6/uL (4.20-5.40); RED CELL DISTRIBUTION WIDTH 15.9 % (12.0-15.0); WHITE BLOOD COUNT 8.3 x10^3/uL (4.8-10.8)
[2023-07-16 14:53] LABS: ALBUMIN 3.5 g/dL (3.2-5.5); ALBUMIN/GLOBULIN RATIO 1.3 (1.0-2.2); BILIRUBIN,TOTAL 0.4 mg/dL (0.2-1.0); CALCIUM 8.6 mg/dL (8.5-10.3); CREATININE 0.3 mg/dL (0.6-1.3); POTASSIUM 3.6 mmol/L (3.5-4.5); TOTAL PROTEIN 6.3 g/dL (6.4-8.9)
[2023-07-16] MEDS: metFORMIN 500 MG TABLET PO SCH (23:35)
[2023-07-17] MEDS: ACETAMINOPHEN 500 MG TABLET PO PRN ×4 (00:11→19:09)
[2023-07-17] MEDS: miSOPROStoL 100 MCG TABLET VG SCH (03:46)
[2023-07-17] MEDS: LACTATED RINGERS 1,000 ML IV SCH (05:34)
[2023-07-17] MEDS ORDERED: ROPIVACAINE 0.2% 200 MG/100 ML BAG EP ONE (05:44)
[2023-07-17] MEDS ORDERED: METOCLOPRAMIDE 10 MG/2 ML VIAL IVP PRN (06:18)
[2023-07-17] MEDS ORDERED: diphenhydrAMINE INJ 50 MG/ML VIAL IVP PRN (06:18)
[2023-07-17] MEDS ORDERED: ePHEDrine 50 MG/ML VIAL IVP PRN (06:18)
[2023-07-17] MEDS ORDERED: ONDANSETRON 4 MG/2 ML VIAL IVP PRN ×2 (06:18→06:42)
[2023-07-17] MEDS ORDERED: NALBUPHINE 10 MG/ML AMP IVP PRN (06:18)
[2023-07-17] MEDS ORDERED: NALOXONE 0.4 MG/ML VIAL IVP PRN (06:18)
[2023-07-17] MEDS ORDERED: LACTATED RINGERS 500 ML IV ONE (06:18)
[2023-07-17] MEDS ORDERED: ROPIVACAINE 0.2% 200 MG/100 ML BAG EP PRN (06:18)
--- NOTE | 2023-07-17 06:18 | ANESTHESIA ---
Pre-Anesthesia VS, & Labs - Diagnosis term labor, IUP - Procedure epidural for Vital Signs: Temp Pulse Resp BP Pulse Ox O2 Flow Rate 36.8 C 85 16 100/51 L 07/15/23 23:00 07/16/23 03:50 07/16/23 03:50 07/16/23 03:50 Height: 5 ft 3 in Weight (kg): 84.822 kg Body Mass Index: 33.1 BMI Classification: Obese - NPO >8 hours Last Fluid Intake: t/o noc - Is Patient ?: Yes - Lab Results Current Lab Results: Laboratory Tests 07/17/23 03:49: POC Whole Bld Glucose 87 07/16/23 23:31: POC Whole Bld Glucose 80 07/16/23 19:00: POC Whole Bld Glucose 103 H 07/16/23 14:18: Sodium 136, Potassium 3.6, Chloride 105, Carbon Dioxide 24, Anion Gap 7.0, BUN 5 L, Creatinine 0.3 L, Estimated GFR (MDRD) 256, Glucose 88, Calcium 8.6, Total Bilirubin 0.4, AST 14, ALT 8 L, Alkaline Phosphatase 96, Total Protein 6.3 L, Albumin 3.5, Globulin 2.8, Albumin/Globulin Ratio 1.3 07/16/23 14:18: WBC 8.3, RBC 3.88 L, Hgb 11.1 L, Hct 34.2 L, MCV 88.1, MCH 28.6, MCHC 32.5, RDW 15.9 H, Plt Count 174, MPV 11.2 H, Neut # (Auto) 5.3, Lymph # (Auto) 2.0, [place] # (Auto) 0.7, Eos # (Auto) 0.1, Baso # (Auto) 0.0, Absolute Nucleated RBC 0.00, Nucleated RBC % 0.0 07/16/23 14:18: Blood Type O POSITIVE, Antibody Screen NEGATIVE Lab results reviewed: Yes Fish Bones: 07/16/23 14:18 07/16/23 14:18 Home Medications and Allergies Active Medications Acetaminophen (Acetaminophen 500 Mg Tablet) 1,000 mg PO Q6HR PRN PRN Reason: HEADACHE Last Admin: 07/17/23 00:11 Dose: 1,000 mg Carboprost Tromethamine (Carboprost Tromethamine 250 Mcg/Ml Amp) 250 mcg IM .ONCE PRN PRN Reason: Hemorrhage Fentanyl (Fentanyl 100 Mcg/2 Ml Vial) 50 mcg IVP Q1H PRN PRN Reason: Severe Pain (score 7-10) Last Admin: 07/17/23 05:15 Dose: 50 mcg Hydralazine HCl (Hydralazine Inj 20 Mg/Ml Vial) 5 - 10 mg IVP Q20M PRN; Protocol PRN Reason: SBP> or= 160 OR DBP> or= 110 Hydralazine HCl (Hydralazine Inj 20 Mg/Ml Vial) 10 mg IVP .ONCE PRN; Protocol PRN Reason: SBP> or= 160 OR DBP> or= 110 Lactated Ringer's (Lr) 1,000 mls @ 125 mls/hr IV .Q8H [facility] Last Admin: 07/17/23 05:34 Dose: 125 mls/hr Oxytocin/Sodium Chloride (Pitocin/Sodium Chloride) 500 mls @ 999 mls/hr IV PRN PRN; Protocol PRN Reason: POST- HEMORR PREVENTION Tranexamic Acid (Tranexamic 1,000 Mg/100ml-Nacl) 1,000 mg in 100 mls @ 600 mls/hr IV Q30M PRN PRN Reason: EBL >1200mL and within 3hr Labetalol HCl (Labetalol 20 Mg/4 Ml Syringe) 20 - 80 mg IVP Q10M PRN; Protocol PRN Reason: SBP> or= 160 OR DBP> or= 110 Labetalol HCl (Labetalol 20 Mg/4 Ml Syringe) 20 mg IVP .ONCE PRN; Protocol PRN Reason: SBP> or= 160 OR DBP> or= 110 Labetalol HCl (Labetalol 20 Mg/4 Ml Syringe) 20 - 40 mg IVP Q10M PRN; Protocol PRN Reason: SBP> or= 160 OR DBP> or= 110 Lidocaine HCl (Lidocaine 1% 20 Ml Mdv) 20 ml ID .ONCE PRN PRN Reason: PERINEAL REPAIR Stop: 07/19/23 13:21 Metformin HCl (Metformin 500 Mg Tablet) 500 mg PO HS [facility] Last Admin: 07/16/23 23:35 Dose: 500 mg Methylergonovine Maleate (Methylergonovine 0.2 Mg/Ml Vial) 0.2 mg IM .ONCE PRN PRN Reason: Hemorrhage Misoprostol (Misoprostol 200 Mcg Tablet) 600 mcg BC .ONCE PRN PRN Reason: Hemorrhage Misoprostol (Misoprostol 200 Mcg Tablet) 800 mcg OK .ONCE PRN PRN Reason: Hemorrhage Misoprostol (Misoprostol 100 Mcg Tablet) 25 mcg VG Q4HR [facility] Last Admin: 07/17/23 03:46 Dose: 25 mcg Nifedipine (Nifedipine 10 Mg Capsule) 10 - 20 mg PO Q20M PRN; Protocol PRN Reason: SBP> or= 160 OR DBP> or= 110 Oxytocin (Oxytocin 10 Unit/Ml Vial) 10 unit IM .ONCE PRN PRN Reason: Step One if no IV access. Sodium Chloride (Sodium Chloride Flush 0.9% 10 Ml Syringe) 10 ml IVP PRN PRN PRN Reason: NEEDED PER PROVIDER ORDERS Sodium Chloride (Sodium Chloride Flush 0.9% 10 Ml Syringe) 10 ml IVP Q8H [facility] Last Admin: 07/16/23 14:25 Dose: Not Given Sodium Chloride (Sodium Chloride Flush 0.9% 10 Ml Syringe) 10 ml IVP PRN PRN PRN Reason: NEEDED PER PROVIDER ORDERS Terbutaline Sulfate (Terbutaline 1 Mg/Ml Vial) 0.25 mg SUBQ .ONCE PRN PRN Reason: Tachystole Allergies/Adverse Reactions: Allergies Allergy/AdvReac Type Severity Reaction Status Date / Time [facility] Allergy Anaphylaxis Verified 07/15/23 14:04 procaine [From Novocain] Allergy Anaphylaxis Verified 07/15/23 14:06 Anes History & Medical History - Anesthetic History Anesthesia Complications: reports: No previous complications Family history of Anesthesia Complications: Denies Family history of Malignant Hyperthermia: Denies - Medical History Cardiovascular: reports: None Pulmonary: reports: None Smoking Status: Never smoker History of Cancer?: No - Obstetrical History : 7 Parity: 2 Events: reports: Oligohydramnios Exam General: Alert, Oriented x3, Cooperative, Mild distress Mouth Openin Fingerbreadth Neck Mobility: Normal Respiratory: No respiratory distress Neurological: Normal speech Mental/Cognitive Status: Alert/Oriented X3, Normal for patient Cognitive Status: Within normal limits Plan Anesthesia Type: Epidural Consent for Procedure(s) Verified and Reviewed: Yes Code Status: Attempt Resuscitation ASA classification: 2-Mild systemic disease Is this case an emergency?: No
[2023-07-17] MEDS ORDERED: ONDANSETRON ODT 4 MG TABLET TL PRN (06:42)
[2023-07-17] MEDS ORDERED: WITCH HAZEL/GLYCERIN 1 PAD TOP PRN (06:42)
[2023-07-17] MEDS ORDERED: LACTATED RINGERS 1,000 ML IV PRN (06:42)
[2023-07-17] MEDS ORDERED: ACETAMINOPHEN 325 MG TABLET PO PRN (06:42)
--- NOTE | 2023-07-17 06:42 | DELIVERY NOTE ---
Delivery Note - Labor Labor: positive: Other (induced by misoprostol) - Delivery Method Infant Delivery Method: positive: Spontaneous vaginal delivery - Cervical Ripening Method Cervical Ripening Method: positive: Misoprostil - Presentation Presentation: positive: Vertex, ROT - right occiput transverse - Nuchal Cord Nuchal Cord: positive: None - Anesthetic Anesthetic Type: - Amniotic Fluid Description Amniotic Fluid Description: positive: Clear - Episiotomy Type Episiotomy Type: positive: None - Laceration Laceration: positive: 2nd degree - Delivery Outcome Delivery Outcome: positive: Livebirth - [place] : positive: Placed in direct skin contact with mother, Bulb syringe, Stimulated, Warmed sex: positive: Female - Cord Cord: positive: 3 vessels - Placenta Placenta: positive: Intact, Spontaneous - Estimated Blood Loss Estimated Blood Loss (in cc): 100 - Post Delivery Events Post Delivery Events: positive: No post delivery events - Delivery Comments (Free Text/Narrative) Delivery Comments (Free Text/Narrative): On 17 Jul 2023, at 0606, patient delivered a viable female over intact perineum immediately after epidural placement. Baby ROT, L shoulder anterior, shoulders and body delivered without difficulty. Baby placed on maternal abdomen. First was 8, cord clamped and cut x2, second 9. Placenta delivered spontaneously at 0611, inspected, found to be intact with 3VC. Fundus firm with IV pitocin. perineum inspected, small 2' laceration with good reapproximation and hemostatic without repair. Vaginal sweep done to re-check bleeding. EBL 100. All counts correct, both mom and baby recovering well. Stage I: 40m Stage II: 5m Stage III: 5m
[2023-07-17] MEDS: SODIUM CHLORIDE FLUSH 0.9% 10 ML SYRINGE IVP SCH ×2 (07:21→09:37)
[2023-07-17] MEDS: IBUPROFEN 600 MG TABLET PO PRN ×3 (07:34→22:35)
[2023-07-17] MEDS: DOCUSATE SODIUM 100 MG CAPSULE PO SCH ×2 (10:29→23:48)
[2023-07-17] MEDS: oxyCODONE 5 MG TABLET PO PRN ×2 (11:57→19:10)
[2023-07-18 00:04] VITALS: O2SAT 98
[2023-07-18] MEDS: LACTATED RINGERS 1,000 ML IV SCH (10:24)
[2023-07-18] MEDS: SODIUM CHLORIDE FLUSH 0.9% 10 ML SYRINGE IVP SCH (10:25)
[2023-07-18] MEDS: ACETAMINOPHEN 500 MG TABLET PO PRN (10:37)
[2023-07-18] MEDS: DOCUSATE SODIUM 100 MG CAPSULE PO SCH (10:37)
[2023-07-18] MEDS: IBUPROFEN 600 MG TABLET PO PRN (10:37)
[2023-07-18 14:24] VITALS: BP 97/60
--- NOTE | 2023-07-18 15:49 | Labor Flowsheet ---
Labor Flowsheet Datetime Report Generated by CPN: 07/18/2023 15:48 Datetime: 07/18/2023 13:56 VITAL SIGNS NBP Sys/Gail/Mean (mmHg): 97 : 60 : 68 Pulse: 81 Datetime: 07/17/2023 07:17 Membranes Ruptured Date/Time: 07/17/2023 06:06 Membranes Rupture Method: Spontaneous Amniotic Fluid Color: Clear Amniotic Fluid Amount: Scant Amniotic Fluid Odor: None Datetime: 07/17/2023 07:00 Stage of : Recovery Datetime: 07/17/2023 06:15 Respirations: 16 SpO2 (%): 99 Temperature (C): 37.1 Temperature Route: Oral PAIN Pain Scale: 7 Pain Presence: Constant Pain Type: Sharp Pain Location: Abdomen; Back; Perineum Pain Goal: 4 Datetime: 07/17/2023 06:03 LaborFlag: Labor Datetime: 07/17/2023 06:01 VAGINAL EXAM Dilatation (cm): 10.0 Effacement (%): 100 Station: 3 Exam by: Dr. Milelr Patient Care Comments: Patient instructed to push at this time. Datetime: 07/17/2023 06:00 Frequency (min): 1-2.5 Duration (sec): 60-80 Pattern: Normal: <= 5 Contractions in 10 Minutes ASSESSMENT A Monitor Mode: Telemetry FHR Baseline Rate : 145 Variability: Moderate 6-25 bpm Accelerations: None Decelerations: Early; Variable Datetime: 07/17/2023 05:57 Epidural Procedure: Test Dose Datetime: 07/17/2023 05:53 Comments: MHR tracing Datetime: 07/17/2023 05:46 PROCEDURE TIME OUT Procedure Verify: Correct Patient Identity; Correct Side and Site are Marked; Accurate Procedure Co nsent Form; Agreement on Procedure to be Done; Correct Patient Position; Relevant Images and Results are Properly Labeled and Displayed; Addressed Need to Administer Antibiotics or Fluids for Irrigation ; Safety Precautions Based on Patient History or Medication Use ANESTHESIA Anesthesia Plans: Epidural Anesthesia Comments: Desmond, EXPORT AGENT at bedside for epidural. Datetime: 07/17/2023 05:45 COMMUNICATION Communication: RN Reviewed Strip Datetime: 07/17/2023 05:37 PATIENT CARE IV/Blood Work: IV Bolus Started; IV Bolus Given ml @ 250 Datetime: 07/17/2023 05:31 Communication Comments: C. Interiano, EXPORT AGENT called for epidural. Datetime: 07/17/2023 05:22 Patient Position/Activity: Left Lateral Datetime: 07/17/2023 05:21 Vaginal Bleeding: Normal Show Cervix, Consistency: Soft Cervix, Position: Midposition Vaginal Exam Comments: Patient permission obtained prior to SVE. Datetime: 07/17/2023 04:30 UTERINE ACTIVITY Monitor Mode: External Monitor Interventions for UA: [place] Station Adjusted Quality: Moderate Resting Tone (Palpate): Relaxed Category: Category I Datetime: 07/17/2023 04:28 I/O Interventions: Up to BR Datetime: 07/17/2023 03:48 Cervical Ripening Agents: Cytotec @ 25 Datetime: 07/17/2023 03:45 Bedside Blood Glucose: 87 Pain Coping: Talking Through Contractions Pain Assessment Comments: Discussed pain medication and comfort options; patient states pain is ying erable and does not require intervention at this time. Breath Sounds, Left: Clear and Equal Breath Sounds, Right: Clear and Equal Datetime: 07/16/2023 23:45 FHR Baseline Changes: No Baseline Change Pain Relief Measures: Comfort Measures Membrane Status: Intact MEDICATIONS Insulin: Metformin 500mg po given w/snacks Comfort Measures: Breathing/Relaxation Datetime: 07/16/2023 23:40 Presentation 'A': Cephalic Datetime: 07/16/2023 23:01 Contraction Comments: indeterminate pattern of uterine activity; TOCO to be readjusted before admn of next cytotec dose Datetime: 07/16/2023 22:01 Oxygen Method: Room Air Datetime: 07/16/2023 14:00 JAUREGUI'S SCORE Dilatation (cm): Closed Effacement: 0-30_ effaced Station: minus 3 Consistency: Medium Position: Posterior Total Jauregui's Score: 1 : 0-4 = Unfavorable cervix MATERNAL ASSESSMENT Level of Consciousness: Alert PRE-INDUCTION CHECKLIST Orders on Chart: Yes Consent Signed and on Chart: Yes Provider with C/S Priv Aware: Yes
--- NOTE | 2023-07-18 20:59 | DISCHARGE SUMMARY ---
Discharge Summary Admit Date: 07/15/23 Discharge Date: 07/18/23 Discharging Provider: Jeannine Del Valle MD Code Status: Attempt Resuscitation Condition at Discharge: Good - DIAGNOSES Admission Diagnoses: oligohydramnios at 36 weeks gestational age Discharge Diagnoses with Status of Each Condition: delivered vaginally - HPI History of Present Illness: pateint was found to have low MICHAEL on ultrasound. admitted overnight for hydration and did not resolve. plan to induce labor. miso x 2 given. labor and then vaginal delivery without complications. discharge on ppd #1. - ALLERGIES Allergies/Adverse Reactions: Allergies Allergy/AdvReac Type Severity Reaction Status Date / Time hops Allergy Anaphylaxis Verified 07/15/23 14:04 procaine [From Novocain] Allergy Anaphylaxis Verified 07/15/23 14:06 - MEDICATIONS Home Medications: Ambulatory Orders Medication Instructions Recorded Confirmed Ondansetron Odt [Zofran] 4 mg TL Q6H PRN #10 tablet 09/02/13 Butalb/Acetam/Caff 50/325/40 1 each PO Q6HR PRN #12 tablet 05/24/22 [Fioricet] Docusate Sodium 100Mg Capsule 100 - 200 mg PO BID PRN #60 cap 07/18/23 [Colace 100Mg Capsule] Ibuprofen [Motrin] 600 mg PO Q6H PRN #30 tab 07/18/23 - PHYSICAL EXAM AT DISCHARGE General Appearance: positive: No acute distress Respiratory: positive: No respiratory distress - LABS Result Diagrams: 07/16/23 14:18 07/16/23 14:18 - FOLLOW UP Follow Up: in 1 week for routine pp exam. - TIME SPENT Time Spent in Discharge (Minutes): 15
== END 2023-07-18 14:45 | disposition home or self-care (01) | DRG 805 ==
LOC: WFO 11:08 → FBP 11:13 → WFO 12:29 → FBP 12:30 → OBSVTOIN 07-16 13:21
PROVIDERS: ADMIT Obstetrics & Gynecology; ATTEND Obstetrics & Gynecology
PROC: 3E0P7VZ Introduction of Hormone into Female Reproductive, Via Natural or Artificial Opening (ICD-10-PCS; 2023-07-16)
PROC: 10E0XZZ Delivery of Products of Conception, External Approach (ICD-10-PCS; principal; 2023-07-17)
DX: O41.03X0 Oligohydramnios, third trimester, not applicable or unspecified (principal); O60.14X0 Preterm labor third trimester with preterm delivery third trimester, not applicable or unspecified; Z37.0 Single live birth; O70.1 Second degree perineal laceration during delivery; O99.214 Obesity complicating childbirth; O24.425 Gestational diabetes mellitus in childbirth, controlled by oral hypoglycemic drugs; Z3A.36 36 weeks gestation of pregnancy
CPT/HCPCS: 36415; 59025; 59409; 80053; 84112; 85025; 86850; 86900; 86901; 87081; 87797; 96360; 99215